=== PATIENT | female | born 1970 | race African-American/Black ===

== ENCOUNTER 2021-08-03 06:59 | Emergency (ER) | payer OTHER, BC ==
[~2021-08-03] VITALS: Ht 175.3 cm; Wt 86.2 kg
[2021-08-03] MEDS ORDERED: KETOROLAC TROMETH 60MG/2ML VIAL IM ONE (07:45)
[2021-08-03 08:43] VITALS: BP 152/86
[2021-08-03] MEDS ORDERED: IBUP800T27 PO (09:13)
[2021-08-03] MEDS ORDERED: METH750T22 PO (09:13)
== END 2021-08-03 10:14 | disposition home or self-care (01) ==
LOC: ER 06:59 → EDBD 06:59 → ER 10:14
DX: S29.011A Strain of muscle and tendon of front wall of thorax, initial encounter (principal); S39.012A Strain of muscle, fascia and tendon of lower back, initial encounter; S76.011A Strain of muscle, fascia and tendon of right hip, initial encounter; I10 Essential (primary) hypertension; Z90.710 Acquired absence of both cervix and uterus; V49.40XA Driver injured in collision with unspecified motor vehicles in traffic accident, initial encounter; Y93.89 Activity, other specified; Y92.410 Unspecified street and highway as the place of occurrence of the external cause; Y99.8 Other external cause status
CPT/HCPCS: 71101; 72100; 73502; 93005; 96372; 99284; J1885